=== PATIENT | female | born 1960 | race Caucasian/White ===

== ENCOUNTER → 2018-08-05 16:39 | Outpatient (CLI) | payer OTHER, SELFPAY ==
--- NOTE | 2018-08-05 16:41 | MM_ITS ---
MM Dig screening mamm BI w/CAD ORDERING PHYSICIAN : Herbert Sosa MD PATIENT AGE: 57 years GENDER: Female COMPARISON: May 2014, June INDICATION: ITS.REASON: SCREENING taking estrogen. No new complaints. Noncontributory family history TECHNIQUE: Standard CC and MLO images were obtained. R2 CAD reviewed. FINDINGS: RIGHT BREAST:.. No significant new findings. Density at the axillary tail right breast is been noted prior studies dating back to back to 2014 . LEFT BREAST:No suspicious new areas of concern. There is question of a small new area of nodularity at the deep left breast, 5 mm size likely was present in 2015.. IMPRESSION: . No significant interval change. Bilateral follow-up in one year would be emphasized and encouraged, particularly with patient on estrogen. BI-RADS Category: 2 Benign Finding(s) RECOMMENDED FOLLOW-UP: 1YR 1 YEAR FOLLOW-UP (A letter has been sent to the patient regarding results of the study.)
== END ==
PROVIDERS: PCP Family Medicine; Visit Provider Obstetrics & Gynecology
DX: Z12.31 Encounter for screening mammogram for malignant neoplasm of breast (principal)
CPT/HCPCS: 77067

== ENCOUNTER → 2019-04-06 08:09 | Outpatient (CLI) | payer OTHER, SELFPAY ==
--- NOTE | 2019-04-06 08:30 | CT_ITS ---
CT lung screening EXAM: CT LUNG LOW DOSE WO CONTRAST HISTORY: 30+ pack year smoking history, asymptomatic for lung cancer ITS.REASON: HX TOBACCO USE ORDERING PHYSICIAN: Kezia Ash APRN PATIENT AGE: 58 years COMPARISON: None TECHNIQUE: The exam was performed on a GE Light Speed [address] scanner using 3.90 mGy CTDI. A low dose helical CT CHEST was performed on a multi-detector scanner. All CT scans at the facility use one or more dose reduction, viz: automated exposure control, ma/kV adjustment per patient size (including targeted exams where dose is matched to indication, i.e. head), or iterative reconstruction technique. The LDCT was performed in a facility that meets the criteria for the screening program. Data regarding this exam was submitted to ACR which is an approved registry. The order for this exam indicates that it came as a result of a lung cancer screening counseling shard decision-making visit that included all the elements required of such a visit including smoking cessation. The radiologist interpreting this exam meets the [facility] criteria for the LDCT lung cancer screening program. The exam is reported using the Lung-RADS classification scale and reported to the ACR registry. NOTE: This study was performed for the specific purposes of lung cancer screening and is not an alternative to diagnostic chest CT. RADIATION DOSE: CTDI vol(CT dose Index-volume) = 2.90mG DLP (Dose Length Product) = 93.51 mGcm FINDINGS: There are no previous exams available for comparison. Multiple abnormalities are present. There is centrilobular emphysema with scattered areas of scarring. There is a right upper lobe mass measuring 5.9 x 3.7 x 5.8 cm. Cyst again is in the right apex that extends inferiorly for a length of 5.8 cm. The margins are somewhat spiculated extensions to the pleural surface along its inferior margin and involvement of the apex superiorly. The mass is not calcified. There are a few satellite nodules adjacent to this lesion and in the right upper lobe measuring up to 6 mm. Numerous small right upper lobe and right lower lobe nodules are present. The apical segmental bronchus abuts up to this lesion. No effusions. No obvious adenopathy. No obvious bony erosive change in the right apex or abnormal soft tissue extension beyond the pleura. There is a 4 mm noncalcified nodule in the left upper lobe. No effusions or infiltrates. No acute bony anomalies. There is some asymmetric density in the outer aspect of the right breast. Correlation with mammography suggested IMPRESSION: 1. Lung RADS Category: 4B, suspicious. There is a 5.9 cm right upper lobe mass with somewhat irregular margins superiorly and inferiorly. This is suspicious for malignancy. This should be accessible for endobronchial biopsy abutting up against the apical segmental bronchus of the right upper lobe. There are numerous other small nodules in the right upper and right lower lobe which may be due to metastatic foci. Progressive massive fibrosis would be included in the differential diagnosis however, it is usually not unilateral. 2. Other findings: Centrilobular emphysema with COPD Asymmetric density lateral right breast which may be due to fibroglandular tissue. Mammography suggested RECOMMENDATIONS: Pulmonology consult. Tissue sampling recommended of the right upper lobe mass. PET/CT may also be of further value to determine metabolic activity of this lesion and the other smaller nodules..
== END ==
PROVIDERS: PCP Family Medicine; Visit Provider Nurse Practitioner Family
DX: Z12.2 Encounter for screening for malignant neoplasm of respiratory organs (principal); Z87.891 Personal history of nicotine dependence

== ENCOUNTER → 2019-07-07 08:48 | Outpatient (CLI) | payer OTHER, SELFPAY ==
--- NOTE | 2019-07-07 08:49 | XR_ITS ---
PROCEDURE: XR DEXA AXIAL SKELETON CLINICAL HISTORY: screening COMPARISON: No exams were available for comparison FINDINGS: Left hip density is 0.873 grams/centimeters sq with T-score -1.2. L1-L4 density is 1.166 grams/centimeters sq with T-score of -0.1 IMPRESSION: Osteopenia with moderate fracture risk. Treatment advised. Suggest follow-up exam June 2021 Dictated by: Rogerio Palmer MD 07/07/2019 11:31 Electronically signed by Rogerio Palmer MD in [place] 07/07/2019 11:31
== END ==
PROVIDERS: PCP Family Medicine; Visit Provider Obstetrics & Gynecology
DX: Z78.0 Asymptomatic menopausal state (principal)
CPT/HCPCS: 77080

== ENCOUNTER → 2019-08-10 08:20 | Outpatient (CLI) | payer BC, SELFPAY ==
--- NOTE | 2019-08-10 08:21 | MM_ITS ---
PROCEDURE: MM DIG SCREENING MAMM BI W/CAD CLINICAL INDICATION: screening There is no personal or family history of breast cancer. COMPARISON: [facility] DIG MAMM-SCREEN GRANT W/CAD from 07/23/2017 [facility] DIG MAMM-DX UNI A/VWS-LT W/CAD from 08/04/2017 [facility] MM Dig screening mamm BI w/CAD from 08/05/2018 TECHNIQUE: Standard CC and MLO images were obtained. R2 CAD reviewed. FINDINGS: Moderate diffuse fibroglandular densities are seen in both breasts and the findings of fairly symmetrical bilaterally. Again noted is the somewhat faint density near the axillary tail right breast which is stable an likely is asymmetric glandular elements. IMPRESSION: There is no new or suspicious lesion in either breast and no suspicious microcalcifications. There are stable small nodes in both axilla. Fibrofatty parenchyma with no suspicious lesions seen BI-RAD Category: 1 Negative FOLLOW-UP: 1YR 1 Year Follow-up (A letter has been sent to the patient regarding results of the study.) Dictated by: Dr. Minor Norman MD 08/12/2019 10:[address] Minor Norman MD in [place] 08/12/2019 10:10
== END ==
PROVIDERS: PCP Family Medicine; Visit Provider Obstetrics & Gynecology
DX: Z12.31 Encounter for screening mammogram for malignant neoplasm of breast (principal)
CPT/HCPCS: 77067

== ENCOUNTER → 2020-07-24 10:18 | Outpatient (CLI) | payer BC, SELFPAY | PROVIDERS: PCP Family Medicine; Visit Provider Family Medicine | DX: Z03.818 Encounter for observation for suspected exposure to other biological agents ruled out (principal) | CPT/HCPCS: U0003 ==

== ENCOUNTER → 2020-08-16 08:12 | Outpatient (CLI) | payer BC, SELFPAY ==
--- NOTE | 2020-08-16 08:12 | MM_ITS ---
PROCEDURE: MM DIG SCREENING MAMM BI W/CAD Digital Breast Tomosynthesis Included CLINICAL INDICATION: Routine Screening Mammogram There is no personal or family history of breast cancer. Patient currently is on Premarin COMPARISON: [facility] DIG MAMM-DX UNI A/VWS-LT W/CAD from 08/04/2017 [facility] MM Dig screening mamm BI w/CAD from 08/05/2018 [facility] MM DIG SCREENING MAMM BI W/CAD from 08/10/2019 TECHNIQUE: Standard CC and MLO images and 3D Tomosynthesis was obtained. R2 CAD reviewed. FINDINGS: Mild to moderate scattered fibroglandular densities are seen in both breasts. There are no CAD markings. Again noted is stable asymmetric glandular elements near the axillary tail right breast confirmed with amelia images. There is no suspicious lesion in either breast and no suspicious microcalcifications. IMPRESSION: Fibrofatty parenchyma with no suspicious lesions seen BI-RAD Category: 1 Negative FOLLOW-UP: 1YR 1 Year Follow-up (A letter has been sent to the patient regarding results of the study.) Dictated by: Dr. Minor Norman MD 08/17/2020 09:57 Dr. Minor Norman MD in [place] 08/17/2020 09:57
== END ==
PROVIDERS: PCP Family Medicine; Visit Provider Obstetrics & Gynecology
DX: Z12.31 Encounter for screening mammogram for malignant neoplasm of breast (principal)
CPT/HCPCS: 77063; 77067

== ENCOUNTER → 2022-03-12 10:04 | Outpatient (CLI) | payer BC, SELFPAY ==
--- NOTE | 2022-03-12 10:10 | XR_ITS ---
FINAL REPORT CLINICAL HISTORY: ACUTE LEFT SIDED BACK PAIN WITH LEFT SIDED SCIATICA FINDINGS: LUMBAR SPINE 5 views of the lumbar spine were obtained. There is no evidence of fracture or dislocation. The vertebral alignment is normal. There is mild degenerative change. There are vascular calcifications. IMPRESSION: No acute bony abnormality. Reviewed, Interpreted and Dictated by Greyson Montez III, MD Transcribed by Linnette Alexandre Authenticated and [facility]
== END ==
PROVIDERS: PCP Family Medicine; Visit Provider Nurse Practitioner Family
DX: M54.42 Lumbago with sciatica, left side (principal)
CPT/HCPCS: 72110